=== PATIENT | male | born 1985 | race Caucasian/White ===

== ENCOUNTER 2019-01-15 01:56 | Emergency (ER) | payer BC, MEDICAID, SELFPAY ==
[2019-01-15 01:59] VITALS: BP 149/85; PULSE 90; RESP 16; TEMP 36.9; O2SAT 97; BMI 24.6
--- NOTE | 2019-01-15 02:05 | RAD_ITS ---
STUDY: X-RAY - LEFT HAND REASON FOR EXAM: Male, 33 years old. Pain in the area of third metacarpal bone for 3 days. TECHNIQUE: 3 view(s) of the hand. COMPARISON: None. FINDINGS: Normal radiocarpal articulation. Normal distal radioulnar joint. Normal visualized carpal bones. There is degenerative joint disease of the scaphotrapezium / trapezoid articulation. The remainder of the carpal articulations are normal. Normal carpometacarpal articulation of the thumb. Normal second through fifth carpometacarpal joints. Normal metacarpi. Normal metacarpophalangeal joint of the thumb. Normal interphalangeal joint of the thumb. Normal proximal and distal phalanges of the thumb. Normal metacarpophalangeal joints of the second through fifth fingers. Normal proximal and distal interphalangeal joints of the second through fifth fingers. Normal phalanges of the second through fifth fingers. The soft tissue structures are unremarkable. RAD/Hand Min 3 Views IMPRESSION: Mild degenerative disease of the level of the wrist, otherwise normal x-ray examination of the hand. Electronically Signed: Funmilayo Chase MD at 2:31 EDT , Service support ,
--- NOTE | 2019-01-15 02:05 | ED.VIS.GEN ---
History of Present Illness Chief Complaint: Upper Extremity Injury Detail of Chief Complaint: Left hand pain Informant: Patient Onset: Days - 2 days Context: Gradual Onset Current Severity: Moderate Maximum Severity: Moderate Narrative: Patient presents with pain to the back of his left hand of the past couple days. 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 States he feels like the tendons are rubbing against each other. He is left-hand dominant. He denies paresthesias or weakness. He denies pain at the elbow or shoulder. Past Medical History - Allergies and Home Meds Allergies/Adverse Reactions: Allergies No Known Allergies Allergy (Verified 01/15/19 02:00) Primary Care Physician: NOT,DEFINED [Primary Care Provider] - Prior records reviewed: Yes Past Medical History: - - Reviewed Smoking Status: Current every day smoker Review of Systems General: Denies: Chills, Fever ENT: Denies: Bilateral ear pain Cardiovascular: Denies: Chest pain Respiratory: Denies: Dyspnea Gastrointestinal: Denies: Abdominal pain Musculoskeletal: Reports: Extremity Pain Skin: Denies: Wounds Neurological: Denies: Headache Hematologic: Denies: Easy bruising Allergy: Denies: Uticaria Physical Exam Vital Signs/Narrative: Vital Signs Temp Pulse Resp BP Pulse Ox 01/15/19 01:59 98.4 F 90 16 149/85 H 97 Inital Vital Signs reviewed: Yes General: Well nourished, Well developed Head: Normocephalic ENT: Moist mucous membranes Neck: Supple Cardiovascular: Regular rate, Regular rhythm Respiratory: No distress, CTA bilaterally Abdomen: Soft, Nontender Extremities: - - Mild tenderness of the dorsal asked to the left hand. Minimal edema. No ecchymosis. Multiple small abrasions noted to both upper extremities. No sign of infection. Full range of motion at all joints are noted. Normal cap refill. Neurological: Alert, Oriented x3 Psychological: Normal affect Diagnostic/Tx/Re-eval 3 view left hand x-ray is obtained. Images are reviewed by myself and reveal no evidence of acute fracture. - Medical Decision Making Patient was given naproxen here for pain. He will be given a Velcro wrist splint. He will be given naproxen along with a 3-day burst of steroid to treat tendinitis. ED Disposition - Plan for ED Patient: Disposition: Home or Assisted Living Diagnosis: Tendinitis of left hand Instructions: Tendonitis Prescriptions: Prednisone [Deltasone] 40 mg PO DAILY #6 tablet Naproxen [Naprosyn] 500 mg PO BID PRN PRN #20 tablet PRN Reason: Pain Score [id number] Referrals: Sandeep Chen DO [NON CLINICAL AFFILIATE] - As Needed
[2019-01-15] MEDS: Naproxen 500 MG Tablet PO (02:07)
[2019-01-15 02:36] VITALS: RESP 16
== END 2019-01-15 02:40 | disposition home or self-care (01) ==
LOC: ED 02:29
PROVIDERS: Emergency Provider Emergency Medicine
DX: M77.9 Enthesopathy, unspecified (principal); F17.200 Nicotine dependence, unspecified, uncomplicated
CPT/HCPCS: 73130; 99283

== ENCOUNTER 2019-01-25 16:25 | Inpatient (IN) | payer MEDICAID, SELFPAY ==
[2019-01-25 16:45] VITALS: BP 137/83; PULSE 78; RESP 16; TEMP 36.7; O2SAT 96; BMI 24.5
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
--- NOTE | 2019-01-25 16:58 | PCM.RU.PYE ---
Admission Information Status Changes from Prescreening?: No changes Identified Actual Problem List:: Mobility Impaired, Self Care Deficit Potential Problem List:: DVT, Bleeding, Infection, UTI, Aspiration, Falls, Skin Integrity, Depression Risk of Complications DVT: LMWH, ELLIE Hose, Sequential Compression Device Bleeding: Monitor Lab Values, Nursing to Teach Precautions for anti-coagulation therapy., Wound, if applicable, to be assessed every shift., Stroke patients assessed for lethargy or change in status. Infection: Clinical Staff to Monitor for S/S of infection:, S/S of infection include fever, redness, warmth, etc. Urinary Tract Infection: Monitor for frequency, burning, discomfort, or incontinence., Nursing will obtain urine sample for urinalysis and C&S when ordered. Aspiration: Clinical staff will monitor for coughing, drooling, congestion., Speech will evaluate swallowing and dsyphasia., Nursing will monitor patient swallowing during meals. Falls: Patient will be evaluated for Fall Precautions, Patient will be placed on Fall Precautions as indicated per protocol. Skin Breakdown: Nursing will assess skin daily using assessment tool., Nursing will place on Skin Breakdown Precautions as indicated. Pain: Clinical staff will assess patient's pain level per protocol., Medications will be given, if needed, and the pain level reassessed., Other methods: Massage, distraction, decrease stimulus, etc. used PRN. Plan of Care Patient requires physician specializing in physical medicine and rehab oversight to provide close medical supervision of rehab issues including: Pain Management, Sleep Problems, Bowel and Bladder, Medical and co-morbidity Management, DVT prophylaxis, Rehabilitation Leadership, Coordination of treatment team Patient needs Physical Therapy: For a minimum of 1 hour, At least 5 out of 7 days Patient needs Physical Therapy to improve:: Mobility, Mobility, Mobility, Strengthening, Transfers, Stretching, ROM, Endurance, Stairs, Gait, Balance Patient needs Occupational Therapy: For a minimum of 1 hour, At least 5 out of 7 days Patient needs Occupational Therapy to improve ADL's incl.: Eating, Grooming, Bathing, Dressing, Toileting, Toilet transfers, Community Reintegration, Higher functioning activities, Household tasks, Adaptive Equipment, Splinting, Other activities as determined Patient requires speech therapy: For a minimum of 1 hour, At least 5 out of 7 days Patient requires speech therapy for: Swallowing, Cognition, Language Skills, Compensatory Strategies Patient requires 24/ Rehabilitation Nursing for: Pain Issues, Identifying and preventing risk factors, Monitoring and reporting current medical conditions, Assisting with ambulation, transfer, and all ADL's, Teaching patients about disease process and medications, Family teaching, Providing safe environment, Bowel and Bladder Issues, Skin integrity, Medication Management Patient needs Residential Solar Sales Consultant/ Case Management for: Discharge Planning, Arranging Home Equipment or Services, Family Interventions Patient needs Dietary and Nutrition Services for: Adequate Nutrition, Nutritional Supplements, Nutritional Education Goals Patient will remain: free from falls, or injury at time of discharge. Patient will perform bed mobility at: MOD I level of assist. Patient will complete transfers from bed to chair at: MOD I level of assist. Patient will ambulate: 100 feet, with MOD I assist, with LRD Patient will complete upper body dressing at: MOD I level of assist. Patient will complete lower body dressing at: MOD I level of assist. Patient will complete toileting at: MOD I level of assist. Patient will perform bathing at: MOD I level of assist. Patient will complete grooming at: MOD I level of assist. Patient will complete home management skills at: MOD I level of assist. Patient will achieve: 12 stairs, at MOD I assist Patient will have pain level of: of 3 or less Patient's skin will: remain intact, free from infection. Patient will receive: adequate nutrition. Discharge Planning Pt Prognosis for Sig. Practical Improv. w/in Reasonable Time: Good Estimated Length of stay (days): 21 Anticipated D/C Destination: Home with Outpt Therapy Was Preadmission Assessment Accurate?: Yes Code Visit Inpatient E&M: 10790 Init Hosp L3
--- NOTE | 2019-01-25 17:45 | NURSING ---
Pt stating he was a pack a day smoker, went over smoking policy with pt and offered nicotine patch if needed to curb craving and pt refused stating he is trying to quit smoking. Offered cessation brochures and pt also declined. Will continue to educate.
[2019-01-25] MEDS: Methocarbamol 500 MG Tablet PO ×2 (18:28→21:25)
[2019-01-25 19:11] VITALS: RESP 16; O2SAT 99
[2019-01-25 21:20] VITALS: BP 124/68; PULSE 100; RESP 16; TEMP 36.7; O2SAT 98
[2019-01-25] MEDS: APIXABAN 2.5 MG TABLET PO (21:24)
[2019-01-25] MEDS: Senna/Docusate Sodium 1 Tablet 2 TABLET PO (21:26)
[2019-01-25] MEDS: oxyCODONE 5 MG Tablet PO (21:49)
[2019-01-25 22:08] VITALS: RESP 18
--- NOTE | 2019-01-25 22:38 | NURSING ---
Patient stated to staff that he needed to have a BM and did not want to use to bedpan. Patient stated he wanted to use to BSC. x3 assist to the BSC using slide board. Per patient this is what he was doing in the hospital prior to arrival to Inpatient rehab. Patient maintained NWB restrictions to LUKE and BLE. Patient was able to have a LG BM and void without difficulty. Patient was assisted back to bed via slide board from BSC via x3 assist. Patient tolerated transfers well.
[2019-01-26 06:22] LABS: Absolute Lymphocyte Count 2.15 X10^3/uL (0.83-4.51); Absolute Neutrophil Count 7.3 X10^3/uL (2.0-7.7); Basophil# 0.08 X10^3/uL; Basophil% 0.7 % (0-1); Eosinophil# 1.15 X10^3/uL; Eosinophils% 9.3 % (0-5); Hemoglobin 9.5 g/dL (13.0-16.5); Lymphocyte # 2.15 X10^3/ul (4.0); Lymphocyte % 17.5 % (19-41); Mean Corp Hgb Conc 31.7 g/dL (32-36); Mean Corpuscular Hgb 29.3 pg (27.0-32.0); Mean Corpuscular Volume 92.6 fL (80-94); Mean Platelet Vol. 8.7 fl (6.2-12.0); Monocyte# 1.23 X10^3/uL; NRBC Flagged by Analyzer 0 % (0-5); Neutrophil # 7.25 X10^3/uL (2.7-7.7); Neutrophil % 58.9 % (47-70); Platelet Count 473 K/mm3 (150-450); RBC Distribution Width CV 16.7 % (11.6-14.6); RBC Distribution Width SD 54.4 fl (35.1-43.9); Red Blood Count 3.24 M/mm3 (4.6-6.2); White Blood Count 12.3 K/mm3 (4.4-11.0)
[2019-01-26 06:43] LABS: Anion Gap 4 (5-15); BUN 17 mg/dL (7-18); BUN/Creat Ratio 24.6 RATIO (10-20); Calcium,Total 8.6 mg/dL (8.5-10.1); Chloride 102 mmol/L (98-107); Creatinine, Serum 0.69 mg/dL (0.70-1.30); EST Glomerular Filtration Rate 141 mL/min (>60); Est Glom Filt Rate - Afr Amer 170 mL/min (>60); Glucose 88 mg/dL (74-106); Potassium 4.5 mmol/L (3.5-5.1); Sodium Level 138 mmol/L (136-145)
[2019-01-26 07:00] VITALS: BP 131/71; PULSE 86; RESP 18; TEMP 36.6; O2SAT 97
[2019-01-26] MEDS: Methocarbamol 500 MG Tablet PO ×4 (07:51→21:13)
[2019-01-26] MEDS: APIXABAN 2.5 MG TABLET PO ×2 (07:52→21:13)
[2019-01-26 09:03] VITALS: O2SAT 98
[2019-01-26] MEDS: oxyCODONE 5 MG Tablet PO (19:46)
[2019-01-26 21:12] VITALS: BP 144/82; PULSE 106; RESP 18; TEMP 36.8; O2SAT 96
[2019-01-27] MEDS: oxyCODONE 5 MG Tablet PO ×2 (06:48→16:29)
[2019-01-27 07:11] VITALS: BP 124/73; PULSE 84; RESP 18; TEMP 36.7; O2SAT 98
[2019-01-27] MEDS: Methocarbamol 500 MG Tablet PO ×4 (07:50→22:13)
[2019-01-27] MEDS: APIXABAN 2.5 MG TABLET PO ×2 (07:50→22:09)
--- NOTE | 2019-01-27 12:30 | NURSING ---
Dr. Banegas aware of patient needing a hospitalist for consult.
[2019-01-27 13:29] VITALS: O2SAT 99
[2019-01-27 21:30] VITALS: PULSE 101; RESP 18; TEMP 36.9; O2SAT 97
--- NOTE | 2019-01-28 04:17 | NURSING ---
REVIEWED AND AGREE WITH [employer] COORDINATOR'S FUNCTIONAL ASSESSMENT AND HANDOFF CHARTING.
[2019-01-28 07:10] VITALS: BP 147/77; PULSE 105; RESP 16; TEMP 36.8; O2SAT 97
[2019-01-28] MEDS: APIXABAN 2.5 MG TABLET PO ×2 (07:47→19:50)
[2019-01-28] MEDS: Methocarbamol 500 MG Tablet PO ×3 (07:47→16:26)
--- NOTE | 2019-01-28 09:09 | NURSING ---
Pt non-compliant with arm sling ordered and refused stating he does not like to wear it., when assisting pt off BSC, pt noted to be bearing wt to LUE, pt reminded on non-wt bearing status to that extremity, voiced understanding, will continue to educate.
--- NOTE | 2019-01-28 10:45 | NURSING ---
Spoke with Arline from Dr Bond office to schedule F/U appt for pt, she is to call back with date and time. Also left message at Dr Penaloza, Dr Garcia, Dr Bhatti and ROLY orellana for F/U appts.
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
[2019-01-28 19:26] VITALS: BP 158/87; PULSE 102; RESP 16; TEMP 36.6; O2SAT 97
[2019-01-28 19:30] VITALS: PULSE 102; RESP 16; O2SAT 97
[2019-01-28] MEDS: cycloBENZAPRine HCl 10 MG Tablet PO (19:50)
[2019-01-28] MEDS: oxyCODONE 5 MG Tablet PO (20:44)
[2019-01-29 08:00] VITALS: BP 142/67; PULSE 78; RESP 15; TEMP 36.5; O2SAT 97
[2019-01-29] MEDS: APIXABAN 2.5 MG TABLET PO ×2 (08:26→21:08)
[2019-01-29] MEDS: cycloBENZAPRine HCl 10 MG Tablet PO ×3 (08:27→21:08)
[2019-01-29] MEDS: oxyCODONE 5 MG Tablet PO ×2 (10:34→16:40)
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
[2019-01-29 19:10] VITALS: BP 151/77; PULSE 95; RESP 18; TEMP 36.7; O2SAT 97
[2019-01-29 21:00] VITALS: PULSE 95; RESP 18; O2SAT 97
--- NOTE | 2019-01-30 01:22 | NURSING ---
Reviewed and agree with BREWMASTER documentation and charting.
[2019-01-30 07:06] VITALS: BP 124/67; PULSE 94; RESP 16; TEMP 36.7; O2SAT 97
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
[2019-01-30] MEDS: cycloBENZAPRine HCl 10 MG Tablet PO ×3 (08:09→21:07)
[2019-01-30] MEDS: APIXABAN 2.5 MG TABLET PO ×2 (08:09→21:04)
[2019-01-30] MEDS: Menthol/Lanolin/Calamine/Znox 113 GM Tube 1 APPLIC TOPICAL ×2 (08:10→21:08)
[2019-01-30] MEDS: oxyCODONE 5 MG Tablet PO (08:52)
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
[2019-01-30 17:08] VITALS: BP 141/77; PULSE 102; RESP 18; O2SAT 97
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
--- NOTE | 2019-01-30 18:31 | NURSING ---
No further complaints of chest tightness or pain.
[2019-01-30 21:20] VITALS: BP 115/58; PULSE 110; RESP 18; TEMP 36.7; O2SAT 97
[2019-01-30 22:00] VITALS: PULSE 110
--- NOTE | 2019-01-30 22:00 | NURSING ---
pt noncomplaint with weight-bearing status this hs. pt declines use of sling also.
[2019-01-31] VITALS (7 sets, daily range): BP systolic 107–144; BP diastolic 59–79; PULSE 100–118; RESP 12–20; TEMP 36.7–36.8; O2SAT 94–100
--- NOTE | 2019-01-31 01:10 | NURSING ---
PT REQUESTING LEXY-SMITH FORHIS NECK. C/O PAIN FROM NECK INTO SHOULDERS AND INTO BACK. DENIES NAUSEA OR SOB. SKIN WARM AND DRY. MEDICATED FOR PAIN RATED #7. REPOSITIONED WITH PILLOW BEHIND BACK WITH PARTIAL RELIEF. EKG ORDERED. CALL PLACED TO DR ARGUETA PER [facility] LUBRICATION WORKER.
[2019-01-31] MEDS: oxyCODONE 5 MG Tablet PO ×2 (01:13→07:44)
--- NOTE | 2019-01-31 01:23 | EKG12_ITS ---
Test Reason : CP Blood Pressure : / mmHG Vent. Rate : 105 BPM Atrial Rate : 105 BPM P-R Int : 154 ms QRS Dur : 090 ms QT Int : 338 ms P-R-T Axes : 064 048 055 degrees QTc Int : 446 ms Sinus tachycardia Nonspecific T wave abnormality Abnormal ECG No previous ECGs available Confirmed by PREETI CHAUDHRY, ARDEN ([id number]), editor greeting card BLAYNE WEBB ([id number]) on 02/05/2019 1:42:10 PM Referred By: Urszula Mathews Confirmed By:LORIN ÁLVAREZ MD
--- NOTE | 2019-01-31 01:28 | NURSING ---
EKG COMPLETED. [facility] BLOOD TESTER PAGES DR ARGUETA AGAIN. PT RATES PAIN #8 NOW. PAIN WORSE WITH DEEP BREATH. LUNG SOUNDS CLEAR ANTERIORLY. O2 APPLIED AT 3 LPM PER N/C.
--- NOTE | 2019-01-31 01:35 | NURSING ---
DR ARGUETA INFORMED OF PT'S C/O PAIN AND VITAL SIGNS. ORDERS GIVEN TO CHECK BP IN BOTH ARMS AND TO NOTIFY OF RESULTS.
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
--- NOTE | 2019-01-31 01:53 | NURSING ---
DR ARGUETA TO BEDSIDE TO EXAMINE PT. INFORMED OF BILAT BP RESULTS. IV STARTED TO R AC.
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
--- NOTE | 2019-01-31 02:06 | NURSING ---
PT TO CT VIA CART AND ON CREDIT REPORT CHECKER.
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
--- NOTE | 2019-01-31 02:26 | NURSING ---
RETURNS FROM CT.PT REPORTS PAIN CONTINUES AND IS WORSE WITH DEEP BREATH.
[2019-01-31] MEDS: cycloBENZAPRine HCl 10 MG Tablet PO ×3 (02:45→21:13)
--- NOTE | 2019-01-31 02:50 | NURSING ---
CTA RESULTS CALLED TO DR ARGUETA. ADDITIONAL PAIN MEDICATION ORDERED.
[2019-01-31] MEDS: Acetaminophen 325 MG Tablet 650 MG PO (03:38)
--- NOTE | 2019-01-31 03:53 | NURSING ---
REVIEWED AND AGREE WITH RUG DESIGNER'S FUNCTIONAL ASSESSMENT OF PT.
[2019-01-31 05:37] LABS: Absolute Lymphocyte Count 0.68 X10^3/uL (0.83-4.51); Absolute Neutrophil Count 15.4 X10^3/uL (2.0-7.7); Basophil# 0.07 X10^3/uL; Basophil% 0.4 % (0-1); Eosinophil# 0.13 X10^3/uL; Eosinophils% 0.7 % (0-5); Hematocrit 32.6 % (40-54); Hemoglobin 10.5 g/dL (13.0-16.5); Lymphocyte # 0.68 X10^3/ul (4.0); Lymphocyte % 3.8 % (19-41); Mean Corp Hgb Conc 32.2 g/dL (32-36); Mean Corpuscular Hgb 29.2 pg (27.0-32.0); Mean Corpuscular Volume 90.6 fL (80-94); Mean Platelet Vol. 8.6 fl (6.2-12.0); Monocyte# 1.43 X10^3/uL; NRBC Flagged by Analyzer 0 % (0-5); Neutrophil # 15.39 X10^3/uL (2.7-7.7); Neutrophil % 86.4 % (47-70); Platelet Count 507 K/mm3 (150-450); RBC Distribution Width CV 15.2 % (11.6-14.6); RBC Distribution Width SD 50.4 fl (35.1-43.9); White Blood Count 17.8 K/mm3 (4.4-11.0)
[2019-01-31 05:59] LABS: Anion Gap 6 (5-15); BUN 13 mg/dL (7-18); BUN/Creat Ratio 20.1 RATIO (10-20); Calcium,Total 9.2 mg/dL (8.5-10.1); Chloride 100 mmol/L (98-107); Creatinine, Serum 0.65 mg/dL (0.70-1.30); EST Glomerular Filtration Rate 152 mL/min (>60); Est Glom Filt Rate - Afr Amer 183 mL/min (>60); Estimated Creatinine Clearance 184.38 ml/min; Ferritin 216 ng/mL (26-388); Glucose 139 mg/dL (74-106); Iron 17 ug/dL (65-175); Iron Binding Capacity,Total 300 ug/dL (250-450); PERCENT IRON SATURATION 5.7 % (15.0-55.0); Potassium 4.2 mmol/L (3.5-5.1); Sodium Level 134 mmol/L (136-145)
--- NOTE | 2019-01-31 06:59 | NURSING ---
DR ARGUETA NOTIFIED OF PT'S MORNING LAB RESULTS (ELEVATED WBC-17.8 AND SODIUM OF 134.) INFORMED PT HAS A MORNING APPT. DR ARGUETA STATES OK FOR PT TO KEEP HIS MORNING APPT AND TO HAVE PT DO INCREASED INCENTIVE SPIROMETER.
[2019-01-31] MEDS: APIXABAN 2.5 MG TABLET PO ×2 (07:44→21:05)
--- NOTE | 2019-01-31 08:00 | NURSING ---
pt left the unit for an appt via [facility] transport
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
[2019-01-31] MEDS: Mag Hydrox/Al Hydrox/Simeth 30 ML UDC PO ×2 (12:00→21:05)
[2019-01-31] MEDS: Ferrous Sulfate 325 MG Tablet PO ×2 (12:00→17:46)
--- NOTE | 2019-01-31 13:30 | CASEMGMT ---
Addendum entered by Ayse Minor 02/01/19 08:57: Physician spoke with pt and pt has appt on 02/04 that he cannot get transport from home to go to. pt agreed to go to appt at [place] 02/05. Notified Maida Wallace of new [place] date. Original Note: Social Work IDT met for Team Meeting to discuss patient's progress. Pt out at plastic surgeon appt. Will meet with pt upon return. Met with patient to discuss information from Team. Pt is at w/c level, SBA for slideboard transfers. Pt has NWB to BLE and LUE. Pt is noncompliant with WB precautions and does not wear sling on left shoulder as ordered. Therapy has limited ability to keep working with pt. Pt is requesting to discharge as soon as possible - requesting 02/03. IDT notified and agreeable. Left message with Maida SAWYER C.M. with insurance. Pt will need [facility] PT/OT, 3-in-1 commode, w/c with elevating leg rests and slideboard. Will continue to follow. Ayse Minor, DAIANA MUNSONW
--- NOTE | 2019-01-31 14:55 | NURSING ---
pt non-complaint with wearing sling to lt should, NWB status to lt shoulder and is removing immobilizer to rt lle, nursing has discussed the need to follow the doctors order with the pt. pt verbalizes understanding but still refuses to comply.
[2019-01-31] MEDS: Menthol/Lanolin/Calamine/Znox 113 GM Tube 1 APPLIC TOPICAL (21:06)
--- NOTE | 2019-01-31 22:00 | NURSING ---
pt noncompliant with use of sliing and weight-bearing status with transfers this hs. pt reminded of weight-bearing status and pt continued to place pressure on left arm and leg. will continue to monitor for signs and symptoms of discomfort.
--- NOTE | 2019-02-01 03:25 | NURSING ---
REviewed and agree with LPNs handoff
[2019-02-01 05:53] LABS: Absolute Lymphocyte Count 1.46 X10^3/uL (0.83-4.51); Absolute Neutrophil Count 5.1 X10^3/uL (2.0-7.7); Basophil# 0.05 X10^3/uL; Basophil% 0.6 % (0-1); Eosinophil# 0.42 X10^3/uL; Eosinophils% 5.2 % (0-5); Hematocrit 29.4 % (40-54); Hemoglobin 9.3 g/dL (13.0-16.5); Lymphocyte # 1.46 X10^3/ul (4.0); Lymphocyte % 18.1 % (19-41); Mean Corp Hgb Conc 31.6 g/dL (32-36); Mean Corpuscular Hgb 28.9 pg (27.0-32.0); Mean Corpuscular Volume 91.3 fL (80-94); Mean Platelet Vol. 8.9 fl (6.2-12.0); Monocyte# 1.06 X10^3/uL; Monocyte% 13.1 % (0-10); NRBC Flagged by Analyzer 0 % (0-5); Neutrophil # 5.06 X10^3/uL (2.7-7.7); Neutrophil % 62.6 % (47-70); Platelet Count 436 K/mm3 (150-450); RBC Distribution Width CV 15.1 % (11.6-14.6); RBC Distribution Width SD 50.2 fl (35.1-43.9); Red Blood Count 3.22 M/mm3 (4.6-6.2); White Blood Count 8.1 K/mm3 (4.4-11.0)
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
[2019-02-01] MEDS: APIXABAN 2.5 MG TABLET PO ×2 (08:17→20:46)
[2019-02-01] MEDS: cycloBENZAPRine HCl 10 MG Tablet PO ×2 (08:18→20:49)
[2019-02-01 08:41] VITALS: BP 126/66; PULSE 120; RESP 18; TEMP 36.6; O2SAT 97
[2019-02-01] MEDS: Menthol/Lanolin/Calamine/Znox 113 GM Tube 1 APPLIC TOPICAL ×2 (09:05→20:45)
--- NOTE | 2019-02-01 11:30 | NURSING ---
message left for ike Parry's office to make them aware that pt will be discharged on 02/05 to see if they want to make a follow up appt for pt, also spoke with dante at Dr Tom echeverria office to see what the plan is for staple removal and to see if the want to schedule an appt. message also left for trauma
[2019-02-01] MEDS: Ferrous Sulfate 325 MG Tablet PO ×2 (12:05→16:42)
[2019-02-01] MEDS: oxyCODONE 5 MG Tablet PO (12:07)
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
--- NOTE | 2019-02-01 15:13 | NURSING ---
Addendum entered by Kirstin Herrera 02/01/19 15:17: recieved script form Dr Fair's office Original Note: received faxed script for peridex form Dr Garcia office
[2019-02-01] MEDS: Chlorhexidine 480 ML 15 ML PO ×2 (18:53→20:47)
[2019-02-01 20:43] VITALS: BP 118/66; PULSE 106; RESP 18; TEMP 36.7; O2SAT 97
--- NOTE | 2019-02-01 21:00 | NURSING ---
incisions cleansed with soap and water at this time. incisions noted to be slightly reddened around the borders where arya enter skin. arya in multiple areas noted to be loose and coming out of skin. pt states the areas are tender and itching from the arya. staff waiting to receive staple dc date from pt's surgeon in [place]. will continue to cleanse with soap and water. pt tolerated procedure well with further complaints of pain or discomfort.
--- NOTE | 2019-02-01 22:00 | NURSING ---
pt non-complaint with weight bearing status of extremities. pt putting weight throughout shoulder and reeducated on NWB status. pt refused to wear sling to left shoulder. will continue to monitor and educate.
--- NOTE | 2019-02-02 05:04 | NURSING ---
Reviewed and agree with LPNs handoff
[2019-02-02 07:30] VITALS: BP 114/70; PULSE 92; RESP 18; TEMP 36.4; O2SAT 96
[2019-02-02] MEDS: oxyCODONE 5 MG Tablet PO ×2 (08:01→20:04)
[2019-02-02] MEDS: APIXABAN 2.5 MG TABLET PO ×2 (08:01→20:13)
[2019-02-02] MEDS: Chlorhexidine 480 ML 15 ML PO ×4 (08:02→20:15)
[2019-02-02] MEDS: Menthol/Lanolin/Calamine/Znox 113 GM Tube 1 APPLIC TOPICAL ×2 (08:03→20:08)
[2019-02-02] MEDS: Ferrous Sulfate 325 MG Tablet PO ×2 (13:02→17:57)
[2019-02-02] MEDS: cycloBENZAPRine HCl 10 MG Tablet PO ×3 (13:04→23:42)
--- NOTE | 2019-02-02 15:16 | NURSING ---
Pt is non-compliant with arm sling to LUE per order and also with NWB status to LUE. Education provided. Small mepilex applied to coccyx area to pad and protect redness. Encouraged pt to lay down in bed and offload area. Pt refused and stated he prefers to sit up in chair. Will continue to monitor.
[2019-02-02 19:34] VITALS: BP 124/72; PULSE 110; RESP 16; TEMP 36.7; O2SAT 99
[2019-02-02 22:00] VITALS: PULSE 110; RESP 16; O2SAT 99
[2019-02-03] MEDS: oxyCODONE 5 MG Tablet PO ×3 (03:05→21:18)
--- NOTE | 2019-02-03 04:48 | NURSING ---
pt offered but refused to reposition for off loading of reddened buttocks.
[2019-02-03 07:54] VITALS: BP 133/70; PULSE 90; RESP 16; TEMP 36.7; O2SAT 97
[2019-02-03] MEDS: APIXABAN 2.5 MG TABLET PO ×2 (08:17→21:19)
[2019-02-03] MEDS: Chlorhexidine 480 ML 15 ML PO ×4 (08:18→21:18)
[2019-02-03] MEDS: cycloBENZAPRine HCl 10 MG Tablet PO (08:21)
[2019-02-03] MEDS: Menthol/Lanolin/Calamine/Znox 113 GM Tube 1 APPLIC TOPICAL ×2 (08:39→21:19)
[2019-02-03] MEDS: Ferrous Sulfate 325 MG Tablet PO ×2 (13:20→17:39)
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
--- NOTE | 2019-02-03 15:46 | NURSING ---
Pt coccyx noted to have increased redness. Education provided to pt and is non-compliant with laying down in bed and offloading. Pt prefers to stay up in recliner or w/c. Voiced understanding at this time and is laying in bed on left side. New mepilex 4x4 dressing applied to area to pad and protect. Pt is non-compliant with wearing arm sling to LUE per order and maintaining NWB status to LUE despite staff education.
[2019-02-03 19:34] VITALS: BP 114/74; PULSE 98; RESP 18; TEMP 36.7; O2SAT 98
[2019-02-03 20:30] VITALS: PULSE 98; RESP 18; O2SAT 98
[2019-02-04] MEDS: cycloBENZAPRine HCl 10 MG Tablet PO ×2 (00:21→12:11)
--- NOTE | 2019-02-04 04:25 | NURSING ---
Pt sitting up and advised to offload to relieve pressure from buttocks that have become reddened. Pt states he is repositioned to provide the most comfort for LLE and refused advise of relieving pressure to buttocks.
[2019-02-04] MEDS: Chlorhexidine 480 ML 15 ML PO ×3 (07:49→21:20)
[2019-02-04] MEDS: APIXABAN 2.5 MG TABLET PO ×2 (07:49→21:20)
[2019-02-04] MEDS: Menthol/Lanolin/Calamine/Znox 113 GM Tube 1 APPLIC TOPICAL ×2 (07:52→21:21)
[2019-02-04 08:36] VITALS: BP 128/73; PULSE 115; RESP 16; TEMP 36.8; O2SAT 96
[2019-02-04] MEDS: oxyCODONE 5 MG Tablet PO ×2 (09:35→21:25)
[2019-02-04] MEDS: Ferrous Sulfate 325 MG Tablet PO ×2 (12:09→17:27)
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
--- NOTE | 2019-02-04 13:48 | NURSING ---
left message for Dr Granado and Dr Parry to schedule F/U appt for pt
--- NOTE | 2019-02-04 16:45 | CASEMGMT ---
Social Work Patient is ready to DC home 02/05 with [facility] PT/OT/SN, drop arm 3-in-1 commode, removable arms on w/c with cushion and elevating leg rests and slideboard from [employer] that will be delivered to pts room. Spoke with Maida Wallace whom has a ramp ready to be delivered to the pts home for DC. [employer] will transport pt home. Ayse Minor, [employer]
[2019-02-04 21:30] VITALS: PULSE 123; RESP 16; O2SAT 98
[2019-02-04 21:32] VITALS: BP 111/77; PULSE 123; RESP 16; TEMP 36.5; O2SAT 98
--- NOTE | 2019-02-04 22:11 | NURSING ---
pt sitting up in w/c and continues to not to off load buttocks and coccyx, mepilex removed d/t falling off and bunching up. pt noted to have a dark ilene area on coccyx and edith cream applied to area and buttocks as ordered. pt stated that he was going to wash up for bed then call for assistance to get into bed
[2019-02-05] MEDS: oxyCODONE 5 MG Tablet PO (04:18)
--- NOTE | 2019-02-05 05:20 | NURSING ---
rEVIEWED AND AGREE WITH STATISTICAL [employer]DEL[employer] DOCUMENTATION AND CHARTING.
[2019-02-05] MEDS: APIXABAN 2.5 MG TABLET PO (07:48)
[2019-02-05] MEDS: cycloBENZAPRine HCl 10 MG Tablet PO (07:49)
[2019-02-05] MEDS: Chlorhexidine 480 ML 15 ML PO (07:49)
[2019-02-05] MEDS: Menthol/Lanolin/Calamine/Znox 113 GM Tube 1 APPLIC TOPICAL (07:50)
[2019-02-05 08:57] VITALS: BP 126/73; PULSE 139; RESP 16; TEMP 36.6; O2SAT 93
[2019-02-05 10:27] VITALS: BP 126/73; PULSE 119; RESP 18; TEMP 36.6; O2SAT 93
--- NOTE | 2019-02-05 10:29 | NURSING ---
pt discharged home with family. discharge instructions and medications reviewed with pt. pt made aware to schedule follow up appts with Dr Parry and Dr cohn. pt denies questions or concerns.
== END 2019-02-05 10:00 | disposition home health service (06) | DRG 862 ==
PROVIDERS: Internal Medicine; Admitting Provider Psychiatry & Neurology Neurology; Referring Provider Psychiatry & Neurology Neurology; Visit Provider Student in an Organized Health Care Education/Training Program
DX: S32.82XD Multiple fractures of pelvis without disruption of pelvic ring, subsequent encounter for fracture with routine healing (principal); S42.302D Unspecified fracture of shaft of humerus, left arm, subsequent encounter for fracture with routine healing; S82.892D Other fracture of left lower leg, subsequent encounter for closed fracture with routine healing; S82.001D Unspecified fracture of right patella, subsequent encounter for closed fracture with routine healing; S02.2XXD Fracture of nasal bones, subsequent encounter for fracture with routine healing; S02.85XD Fracture of orbit, unspecified, subsequent encounter for fracture with routine healing; S02.401D Maxillary fracture, unspecified side, subsequent encounter for fracture with routine healing; S62.608D Fracture of unspecified phalanx of other finger, subsequent encounter for fracture with routine healing; F17.210 Nicotine dependence, cigarettes, uncomplicated; F11.11 Opioid abuse, in remission; D50.9 Iron deficiency anemia, unspecified; V44.5XXD Car driver injured in collision with heavy transport vehicle or bus in traffic accident, subsequent encounter
CPT/HCPCS: 36415; 71275; 72170; 80048; 82728; 83540; 83550; 85025; 93005; 97110; 97163; 97167; 97530; 97535; 97537; 97542; 97803; 99251; 99406; Q9967; G0463

== ENCOUNTER 2019-02-14 16:57 | Emergency (ER) | payer BC, MEDICAID, SELFPAY ==
[2019-01-25 16:45] VITALS: BMI 24.5
[2019-02-14 16:58] VITALS: BP 138/76; PULSE 92; RESP 13; TEMP 37; O2SAT 99; BMI 25.7
[2019-02-14 17:07] VITALS: BP 138/76; PULSE 92; RESP 13; TEMP 37; O2SAT 96
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
== END 2019-02-14 17:23 | disposition home or self-care (01) ==
PROVIDERS: Emergency Provider Emergency Medicine
DX: L03.115 Cellulitis of right lower limb (principal); Z86.14 Personal history of Methicillin resistant Staphylococcus aureus infection; Z72.0 Tobacco use
CPT/HCPCS: 99282